=== PATIENT | female | born 1995 | race Caucasian/White ===

== ENCOUNTER 2017-03-11 14:05 | Emergency (ER) | payer OTHER ==
[~2017-03-11] VITALS: Ht 162.6 cm; Wt 104.4 kg
[~2017-03-11 14:05] MED LIST: AMBIEN10 MG PO; Ambien PO; Colace PO; ENDOCET 5-3251 EACH PO; FERROUS SULFAT325 MG PO; FLEXERIL10 MG PO; Feosol PO; IBUPROFEN800 MG PO; LOTRIMIN AF24 GM TP; MELATONIN10 M2 PO; MELATONIN5 M1 PO; MOTRIN800 MG PO; Motrin PO; NAPROSYN500 MG PO; PERCOCET 5/31 TABLET PO; PRENATAL TABLE1 EAC3 PO; PRILOSEC OTC20 MG PO; RITALIN LA30 MG PO; RITALIN10 MG PO; TUSSIN100 MG/51 PO; TYLENOL PM1 CAPLET PO; ZOFRAN4 MG PO; ZOLOFT100 MG PO; ZOLOFT50 M1 PO; ZOLOFT50 MG PO
[2017-03-11 14:28] VITALS: BP 123/72
[2017-03-11] MEDS ORDERED: XANAX0.25 MG PO (16:12)
[2017-03-11] MEDS ORDERED: NAPROXEN500 MG PO (16:46)
== END 2017-03-11 17:16 | disposition home or self-care (01) ==
LOC: EME 14:05
DX: S90.32XA Contusion of left foot, initial encounter (principal); M25.572 Pain in left ankle and joints of left foot; W20.8XXA Other cause of strike by thrown, projected or falling object, initial encounter; F17.200 Nicotine dependence, unspecified, uncomplicated
CPT/HCPCS: 73630; 99281; 99284

== ENCOUNTER 2017-04-14 15:43 | Emergency (ER) | payer OTHER ==
[~2017-04-14] VITALS: Ht 162.6 cm; Wt 105.5 kg
[~2017-04-14 15:43] MED LIST changes: +NAPROXEN500 MG PO; +XANAX0.25 MG PO
[2017-04-14] MEDS ORDERED: KEFLEX500 MG PO (17:44)
[2017-04-14 18:05] VITALS: BP 119/87
== END 2017-04-14 18:06 | disposition left against medical advice (07) ==
LOC: EME 15:43
DX: S61.512A Laceration without foreign body of left wrist, initial encounter (principal); W26.0XXA Contact with knife, initial encounter; Y93.F9 Activity, other caregiving; Y92.000 Kitchen of unspecified non-institutional (private) residence as the place of occurrence of the external cause
CPT/HCPCS: 73110; 99281; 99284

== ENCOUNTER 2017-09-26 19:42 | Emergency (ER) | payer OTHER ==
[~2017-09-26] VITALS: Ht 170.2 cm; Wt 104.3 kg
[~2017-09-26 19:42] MED LIST changes: +KEFLEX500 MG PO
[2017-09-26 20:45] LABS: HEMATOCRIT 40.2 % (36.0-46.0); HEMOGLOBIN 13.3 G/DL (11.9-15.5); MCH 28.1 PG (29.0-34.0); MCHC 33.1 G/DL (30.0-36.0); MCV 84.8 FL (83-99); PLATELET COUNT 210 K/uL (156-360); RBC DIS.WIDTH-CV 13.2 % (11.8-14.6); RBC DIS.WIDTH-SD 40.7 % (39-53); RED BLOOD COUNT 4.74 M/uL (3.80-5.20); WHITE BLOOD COUNT 7.6 K/uL (4.1-10.2)
[2017-09-26 20:48] LABS: APPEARANCE CLOUDY ((CLEAR)); BILIRUBIN NEGATIVE; BLOOD NEGATIVE; COLOR YELLOW ((YELLOW)); GLUCOSE (STRIP) NEGATIVE; KETONES NEGATIVE; LEUKOCYTES TRACE; NITRITE NEGATIVE; PROTEIN (STRIP) NEGATIVE; SPECIFIC GRAVITY 1.024 (1.000-1.030)
[2017-09-26 20:57] LABS: BACTERIA NONE SEEN /HPF; EPITHELIAL CELLS 2+ /HPF; MUCUS TRACE /LPF; UCUL ADDED? YES
[2017-09-26 21:02] LABS: ALBUMIN 4.5 g/dL (3.2-4.8); CHLORIDE 107 mEq/L (99-109); POTASSIUM 4.4 mEq/L (3.7-5.4); SODIUM 139 mEq/L (136-147)
[2017-09-26 21:04] LABS: GLUCOSE 94 mg/dL (70-99); TOTAL PROTEIN 7.5 g/dL (6.4-8.3)
[2017-09-26 21:06] LABS: TOTAL BILIRUBIN 0.8 mg/dL (0.0-1.0)
[2017-09-26 21:08] LABS: ALKALINE PHOSPHATASE 55 IU/L (3-129); CREATININE 0.9 mg/dL (0.6-1.3); GFR ESTIMATE (CALCULATED) > 59 mL/min/
[2017-09-26 21:09] LABS: UREA NITROGEN (BUN) 14 mg/dL (9-23)
[2017-09-26 21:10] LABS: AST (GOT) 17 IU/L (2-34)
[2017-09-26 21:11] LABS: ALT (GPT) 24 IU/L (3-49); LIPASE 27 U/L (1.0-51.0)
[2017-09-26] MEDS ORDERED: ZOFRAN ODT4 MG PO (21:16)
[2017-09-26] MEDS ORDERED: BENTYL20 MG PO (21:16)
[2017-09-26 21:20] LABS: QUANTITATIVE HCG < 4.0 MIU/ML
[2017-09-26] MEDS ORDERED: KEFLEX500 MG PO (22:38)
[2017-09-26 23:09] VITALS: BP 132/78
== END 2017-09-26 23:09 | disposition home or self-care (01) ==
LOC: EME 19:42
DX: N39.0 Urinary tract infection, site not specified (principal); B96.20 Unspecified Escherichia coli [E. coli] as the cause of diseases classified elsewhere; K80.20 Calculus of gallbladder without cholecystitis without obstruction; K21.9 Gastro-esophageal reflux disease without esophagitis; Z88.2 Allergy status to sulfonamides; Z88.1 Allergy status to other antibiotic agents; Z97.5 Presence of (intrauterine) contraceptive device
CPT/HCPCS: 76705; 80053; 81003; 83690; 84702; 85027; 87077; 87086; 87186; 99281; 99284; J0500; J1885

== ENCOUNTER 2018-01-31 01:47 | Emergency (ER) | payer OTHER ==
[~2018-01-31] VITALS: Ht 162.6 cm; Wt 94.3 kg
[~2018-01-31 01:47] MED LIST changes: +BENTYL20 MG PO; +ZOFRAN ODT4 MG PO
[2018-01-31 05:40] VITALS: BP 127/83
== END 2018-01-31 05:49 | disposition home or self-care (01) ==
LOC: EME 01:47
DX: F10.129 Alcohol abuse with intoxication, unspecified (principal); R11.10 Vomiting, unspecified
CPT/HCPCS: 99281; 99285; J2405; J7030

== ENCOUNTER 2018-03-26 12:09 | Emergency (ER) | payer OTHER ==
[~2018-03-26] VITALS: Ht 165.1 cm; Wt 89.0 kg
[2018-03-26 12:52] LABS: APPEARANCE SL.HAZY ((CLEAR)); BILIRUBIN NEGATIVE; BLOOD NEGATIVE; COLOR YELLOW ((YELLOW)); GLUCOSE (STRIP) NEGATIVE; KETONES NEGATIVE; LEUKOCYTES NEGATIVE; NITRITE NEGATIVE; PROTEIN (STRIP) NEGATIVE; SPECIFIC GRAVITY 1.014 (1.000-1.030); UROBILINOGEN 0.2 MG/DL (0.2-1.0)
[2018-03-26 12:54] LABS: HEMATOCRIT 41.4 % (36.0-46.0); HEMOGLOBIN 14.3 G/DL (11.9-15.5); MCH 29.1 PG (29.0-34.0); MCHC 34.5 G/DL (30.0-36.0); MCV 84.1 FL (83-99); RBC DIS.WIDTH-CV 12.6 % (11.8-14.6); RBC DIS.WIDTH-SD 38.5 % (39-53); RED BLOOD COUNT 4.92 M/uL (3.80-5.20); WHITE BLOOD COUNT 7.9 K/uL (4.1-10.2)
[2018-03-26 12:58] LABS: BACTERIA NONE SEEN /HPF; EPITHELIAL CELLS 3+ /HPF; MUCUS TRACE /LPF; RED BLOOD CELLS 0-5 /HPF (0-5); UCUL ADDED? NO; WHITE BLOOD CELLS 0-5 /HPF (0-5)
[2018-03-26 13:05] LABS: AMPHETAMINE NEGATIVE (500 ng/mL); BARBITURATES NEGATIVE (200 ng/mL); BENZODIAZEPINES NEGATIVE (150 ng/mL); BUPRENORPHINE NEGATIVE (10 ng/mL); COCAINE NEGATIVE (150 ng/mL); METHADONE NEGATIVE (200 ng/mL); METHAMPHETAMINE NEGATIVE (500 ng/mL); OPIATES (MORPHINE) NEGATIVE (100 ng/mL); OXYCODONE NEGATIVE (100 ng/mL); PHENCYCLIDINE NEGATIVE (25 ng/mL); PROPOXYPHENE NEGATIVE (300 ng/mL); THC CANNABINOIDS PRESUMPTIVE POSITIVE (50 ng/mL); TRICYCLIC ANTIDEPRESSANTS NEGATIVE (300 ng/mL)
[2018-03-26 13:07] LABS: CHLORIDE 108 mEq/L (99-109); POTASSIUM 4.2 mEq/L (3.7-5.4); SODIUM 142 mEq/L (136-147)
[2018-03-26 13:09] LABS: GLUCOSE 104 mg/dL (70-99)
[2018-03-26 13:12] LABS: SERUM ETHYL ALCOHOL < 10 mg/dL
[2018-03-26 13:13] LABS: CREATININE 0.9 mg/dL (0.6-1.3); GFR ESTIMATE (CALCULATED) > 59 mL/min/
[2018-03-26 13:14] LABS: UREA NITROGEN (BUN) 13 mg/dL (9-23)
[2018-03-26 13:40] LABS: PLATELET CLUMPS PRESENT - PLATELET COUNT APPEARS ADQ.; PLATELET COUNT UNABLE TO REPORT K/uL (156-360)
[2018-03-26 14:31] VITALS: BP 133/78
== END 2018-03-26 14:32 | disposition home or self-care (01) ==
LOC: EME 12:09
PROVIDERS: Emergency Medicine
DX: F43.20 Adjustment disorder, unspecified (principal); F32.9 Major depressive disorder, single episode, unspecified; F41.9 Anxiety disorder, unspecified; Z63.0 Problems in relationship with spouse or partner
CPT/HCPCS: 80048; 81003; 84999; 85027; 90837; 99281; 99284; G0480